=== PATIENT | female | born 1995 | race Caucasian/White ===

== ENCOUNTER 2021-03-18 11:14 | Emergency (ER) | payer BC ==
--- NOTE | 2021-03-18 11:49 | ED Physician Documentation ---
PD HPI DYSPNEA - Stated complaint Stated Complaint: SOA/CHEST TIGHTNESS - Chief complaint Chief Complaint: Cardiac - History obtained from History obtained from: Patient - History of Present Illness Timing - onset: How many hours ago (1), Today Timing - onset during: Light activity (was sitting at her desk doing computer work.) Timing - duration: Minutes Timing - details: Abrupt onset, Now resolved Inciting event(s): No: URI, Exposure (ie smoke), Immobilization/travel Improved by: Other (it resolved in few minutes without particular action/treatment.) Associated symptoms: No: Fever, Cough, Bilateral edema Similar symptoms before: Has not had sx before Recently seen: Not recently seen Review of Systems Constitutional: denies: Fever, Chills, Myalgias Nose: denies: Rhinorrhea / runny nose, Congestion Throat: denies: Sore throat Respiratory: denies: Dyspnea, Cough, Wheezing GI: denies: Abdominal Pain, Nausea, Vomiting Skin: denies: Rash, Lesions Neurologic: denies: Generalized weakness, Near syncope, Altered mental status PD PAST MEDICAL HISTORY - Past Medical History Past Medical History: No - Present Medications Home Medications: Ambulatory Orders Medication Instructions Recorded Confirmed Etonogestrel [Nexplanon] 68 mg SQ DAILY 03/18/21 03/18/21 - Allergies Allergies/Adverse Reactions: Allergies Allergy/AdvReac Type Severity Reaction Status Date / Time No Known Drug Allergies Allergy Verified 03/18/21 11:29 - Living Situation Living Arrangement: reports: At home - Social History Does the pt smoke?: No Does the pt drink ETOH?: No Does the pt have substance abuse?: No - Family History Family history: reports: CAD PD ED PE NORMAL - Vitals Vital signs reviewed: Yes - General General: Alert and oriented X 3, No acute distress, Well developed/nourished - HEENT HEENT: Pharynx benign - Neck Neck: Supple, no meningeal sign, No adenopathy - Cardiac Cardiac: RRR, No murmur - Respiratory Respiratory: Clear bilaterally, Other (no chestwall tenderness) - Abdomen Abdomen: Soft, Non tender, Other (obese) - Derm Derm: Normal color, Warm and dry - Extremities Extremities: No tenderness to palpate, Normal ROM s pain, No edema, No calf tenderness / cord - Neuro Neuro: Alert and oriented X 3, No motor deficit, Normal speech Results - Vitals Vitals: Oxygen O2 Source Room air - EKG (time done) 11:21 Rate: Rate (enter#) (96) Rhythm: NSR Downing: Normal Intervals: Normal NC QRS: Normal Ischemia: Normal ST segments, T wave inversion (III only). No: ST elevation c/w ischemia, ST depression - Labs Labs: Laboratory Tests 03/18/21 03/18/21 03/18/21 13:14 13:14 13:14 WBC 13.0 H RBC 4.70 Hgb 12.6 Hct 40.2 MCV 85.5 MCH 26.8 L MCHC 31.3 L RDW 13.6 Plt Count 235 MPV 12.8 H Neut # (Auto) 10.4 H Lymph # (Auto) 1.8 [place] # (Auto) 0.7 Eos # (Auto) 0.0 Baso # (Auto) 0.0 Absolute Nucleated RBC 0.00 Nucleated RBC % 0.0 Sodium 137 Potassium 4.2 Chloride 102 Carbon Dioxide 23 Anion Gap 12.0 BUN 12 Creatinine 0.6 Estimated GFR (MDRD) 120 Glucose 107 H Calcium 9.5 Total Bilirubin 0.3 AST 27 ALT 27 Alkaline Phosphatase 70 Troponin I High Sens 2.9 B-Natriuretic Peptide Total Protein 7.8 Albumin 4.2 Globulin 3.6 Albumin/Globulin Ratio 1.2 Lipase 27 03/18/21 13:14 WBC RBC Hgb Hct MCV MCH MCHC RDW Plt Count MPV Neut # (Auto) Lymph # (Auto) [place] # (Auto) Eos # (Auto) Baso # (Auto) Absolute Nucleated RBC Nucleated RBC % Sodium Potassium Chloride Carbon Dioxide Anion Gap BUN Creatinine Estimated GFR (MDRD) Glucose Calcium Total Bilirubin AST ALT Alkaline Phosphatase Troponin I High Sens B-Natriuretic Peptide 83 Total Protein Albumin Globulin Albumin/Globulin Ratio Lipase - Rads (name of study) chest xray Radiology: Prelim report reviewed (no acute infiltrate), See rad report PD MEDICAL DECISION MAKING - ED course Complexity details: reviewed results, considered differential, d/w patient Departure - Departure Disposition: 01 Home, Self Care Clinical Impression: Chest discomfort Condition: Stable Record reviewed to determine appropriate education?: Yes Instructions: ED Chest Pain Atypical Unkn Cause Follow-Up: [facility] [Provider Group] [facility] [Provider Group] Comments: No signs of a significant cause for your chest discomfort today. See if there is any recurrent episodes in the near future. See if any other symptoms develop such as cough, fevers, shortness of breath, recurrent pains etc. Follow-up with a primary care or the walk-in if recurrent mild episodes over the next days or week. Return to the ER if worsening symptoms overall. Discharge Date/Time: 03/18/21 14:48
--- NOTE | 2021-03-18 12:04 | XRAY Report ---
PROCEDURE: Chest 1 View X-Ray INDICATIONS: Chest pain TECHNIQUE: One view of the chest was acquired. COMPARISON: None FINDINGS: Surgical changes and devices: None. Lungs and pleura: No pleural effusions or pneumothorax. Lungs are clear. Mediastinum: Mediastinal contours appear normal. Heart size is normal. Bones and chest wall: No suspicious bony lesions. Overlying soft tissues appear unremarkable. IMPRESSION: No acute cardiopulmonary disease process. Reviewed by: Delfina Malone MD, PhD on 03/18/2021 12:03 PM PDT Approved by: Delfina Malone MD, PhD on 03/18/2021 12:03 PM PDT Station ID: [id number]
[2021-03-18 13:24] LABS: BASOPHILS % (AUTO) 0.2 %; EOSINOPHILS % (AUTO) 0.2 %; HCT - HEMATOCRIT 40.2 % (37.0-47.0); HGB - HEMOGLOBIN 12.6 g/dL (12.0-16.0); LYMPHOCYTES # (AUTO) 1.8 10^3/uL (1.5-3.5); LYMPHOCYTES % (AUTO) 13.9 %; MEAN CORPUSCULAR HEMOGLOBIN 26.8 pg (27.0-31.0); MEAN CORPUSCULAR HGB CONC 31.3 g/dL (32.0-36.0); MEAN CORPUSCULAR VOLUME 85.5 fL (81.0-99.0); MEAN PLATELET VOLUME 12.8 fL (7.9-10.8); MONOCYTES # (AUTO) 0.7 10^3/uL (0.0-1.0); MONOCYTES % (AUTO) 5.5 %; NEUTROPHILS # (AUTO) 10.4 10^3/uL (1.5-6.6); NEUTROPHILS % (AUTO) 79.9 %; PLT - PLATELET COUNT 235 10^3/uL (130-450); RED CELL DISTRIBUTION WIDTH 13.6 % (12.0-15.0)
[2021-03-18 13:38] LABS: ALBUMIN 4.2 g/dL (3.2-5.5); ALBUMIN/GLOBULIN RATIO 1.2 (1.0-2.2); BILIRUBIN,TOTAL 0.3 mg/dL (0.2-1.0); CALCIUM 9.5 mg/dL (8.5-10.3); CREATININE 0.6 mg/dL (0.4-1.0); POTASSIUM 4.2 mmol/L (3.5-5.0); TOTAL PROTEIN 7.8 g/dL (6.7-8.2)
[2021-03-18 14:48] VITALS: BP 140/65
== END 2021-03-18 14:48 | disposition home or self-care (01) ==
LOC: ED 11:14
DX: R07.9 Chest pain, unspecified (principal)
CPT/HCPCS: 36415; 80053; 83690; 83880; 84484; 85025; 93005; 99284

== ENCOUNTER 2021-06-25 08:43 | Outpatient (CLI) | payer BC ==
--- NOTE | 2021-07-04 02:22 | XRAY Report ---
PROCEDURE: Foot 3 View RT INDICATIONS: SPRAIN OF R FOOT TECHNIQUE: 3 views of the foot were acquired. Images became available for review on 07/03/2021. COMPARISON: None FINDINGS: Bones: No fractures or dislocations. No suspicious bony lesions. Calcaneal spur is noted. Soft tissues: No tibiotalar joint effusion. Achilles tendon appears normal. IMPRESSION: No visualized acute fracture or dislocation. However, occult injury cannot be excluded. Recommend christina rt interval imaging follow-up in 7-10 days as clinically indicated for additional evaluation. Reviewed by: Lyla Matthews MD on 07/04/2021 1:50 AM PDT Approved by: Lyla Matthews MD on 07/04/2021 1:50 AM PDT Station ID: [id number]
== END 2021-06-25 23:59 | disposition home or self-care (01) ==
LOC: DI.N 08:43
PROVIDERS: ATTEND Physician Assistant Medical
DX: S93.601A Unspecified sprain of right foot, initial encounter (principal)

== ENCOUNTER 2021-11-13 15:53 | Emergency (ER) | payer BC ==
[2021-11-13 16:47] LABS: BASOPHILS % (AUTO) 0.3 %; EOSINOPHILS # (AUTO) 0.1 10^3/uL (0.0-0.7); EOSINOPHILS % (AUTO) 0.5 %; HCT - HEMATOCRIT 39.7 % (37.0-47.0); HGB - HEMOGLOBIN 12.9 g/dL (12.0-16.0); LYMPHOCYTES # (AUTO) 1.9 10^3/uL (1.5-3.5); LYMPHOCYTES % (AUTO) 16.3 %; MEAN CORPUSCULAR HEMOGLOBIN 28.3 pg (27.0-31.0); MEAN CORPUSCULAR HGB CONC 32.5 g/dL (32.0-36.0); MEAN CORPUSCULAR VOLUME 87.1 fL (81.0-99.0); MEAN PLATELET VOLUME 13.5 fL (7.9-10.8); MONOCYTES # (AUTO) 0.7 10^3/uL (0.0-1.0); MONOCYTES % (AUTO) 5.6 %; NEUTROPHILS # (AUTO) 9.1 10^3/uL (1.5-6.6); PLT - PLATELET COUNT 232 10^3/uL (130-450); RED BLOOD COUNT 4.56 10^6/uL (4.20-5.40); RED CELL DISTRIBUTION WIDTH 13.6 % (12.0-15.0); WHITE BLOOD COUNT 11.9 x10^3/uL (4.8-10.8)
--- NOTE | 2021-11-13 16:49 | ED Physician Documentation ---
PD HPI ABD PAIN - Stated complaint Stated Complaint: ABD PX - Chief complaint Chief Complaint: Abd Pain - History obtained from History obtained from: Patient - Additional information Additional information: 26yo female with hx depression, insulin resistance on ozempic, vit D defy. No PSHX Bilateral upper abd pain starting today about 2 hrs ago, sudden in onset. Sharp/Crampy 8-9/10, waxes and wanes +N, -V Review of Systems Ten Systems: 10 systems reviewed and negative Constitutional: reports: Sweats. denies: Fever, Chills Cardiac: denies: Palpitations Respiratory: denies: Dyspnea, Cough GI: reports: Abdominal Pain, Nausea. denies: Vomiting : denies: Dysuria, Hesitancy PD PAST MEDICAL HISTORY - Present Medications Home Medications: Ambulatory Orders Medication Instructions Recorded Confirmed Etonogestrel [Nexplanon] 68 mg SQ DAILY 03/18/21 03/18/21 HYDROcod/ACETAM 5/325 [[place] 5/325] 1 - 2 tab PO Q6H PRN #15 tablet 11/13/21 - Allergies Allergies/Adverse Reactions: Allergies Allergy/AdvReac Type Severity Reaction Status Date / Time metronidazole Allergy Nausea Verified 11/13/21 16:04 - Social History Does the pt smoke?: No Smoking Status: Never smoker Does the pt drink ETOH?: No Does the pt have substance abuse?: No PD ED PE NORMAL - Vitals Vital signs reviewed: Yes - General General: Alert and oriented X 3, No acute distress - HEENT HEENT: PERRL, EOMI - Neck Neck: Supple, no meningeal sign, No bony TTP - Cardiac Cardiac: RRR, No murmur - Respiratory Respiratory: No respiratory distress, Clear bilaterally - Abdomen Abdomen: Normal bowel sounds, Soft, Other (Bilateral upper abd TTP) - Back Back: No CVA TTP, No spinal TTP - Derm Derm: Normal color, Warm and dry - Extremities Extremities: No edema, No calf tenderness / cord - Neuro Neuro: Alert and oriented X 3, Normal speech Results - Vitals Vitals: Vital Signs - 24 hr 11/13/21 11/13/21 15:59 18:03 Temperature 36.4 C L Heart Rate 78 69 Respiratory 18 18 Rate Blood Pressure 128/64 140/79 H O2 Saturation 100 100 Oxygen O2 Source Room air - Labs Labs: Laboratory Tests 11/13/21 11/13/2111/13/22 16:40 16:40 17:28 WBC 11.9 H RBC 4.56 Hgb 12.9 Hct 39.7 MCV 87.1 MCH 28.3 MCHC 32.5 RDW 13.6 Plt Count 232 MPV 13.5 H Neut # (Auto) 9.1 H Lymph # (Auto) 1.9 [place] # (Auto) 0.7 Eos # (Auto) 0.1 Baso # (Auto) 0.0 Absolute Nucleated RBC 0.00 Nucleated RBC % 0.0 Sodium 136 Potassium 3.8 Chloride 102 Carbon Dioxide 24 Anion Gap 10.0 BUN 11 Creatinine 0.6 Estimated GFR (MDRD) 119 Glucose 110 H Calcium 9.1 Total Bilirubin 0.5 AST 40 ALT 23 Alkaline Phosphatase 71 Total Protein 7.4 Albumin 3.9 Globulin 3.5 Albumin/Globulin Ratio 1.1 Lipase 296 H Urine Color YELLOW Urine Clarity HAZY Urine pH 7.0 Ur Specific [place] 1.020 Urine Protein NEGATIVE Urine Glucose (UA) NEGATIVE Urine Ketones TRACE Urine Occult Blood NEGATIVE Urine Nitrite NEGATIVE Urine Bilirubin NEGATIVE Urine Urobilinogen 1 (NORMAL) Ur Leukocyte Esterase NEGATIVE Urine RBC 0-5 Urine WBC 0-3 Ur Squamous Epith Cells MOD Squamous H Urine Bacteria Few Urine Mucus Moderate Strands Ur Microscopic Review INDICATED Urine Culture Comments NOT INDICATED Urine HCG, Qual NEGATIVE PD MEDICAL DECISION MAKING - ED course ED course: 26-year-old woman has a episodic upper abdominal pain most consistent with biliary colic. Ultrasound showing cholelithiasis and sludge. No evidence of cholecystitis. She was pain-free after arrival and declined pain medication. She does have mild biochemical pancreatitis. Of note she has been on Ozempic for about 2 months which has listed side effects of pancreatitis, abdominal pain, cholelithiasis, and cholecystitis and advised to discontinue that pending further work-up. Discussed need for surgical follow-up. We discussed clear liquid diet for today and then gallbladder diet going forward. Departure - Departure Disposition: 01 Home, Self Care Clinical Impression: Abdominal pain Qualifiers: Abdominal location: epigastric Qualified Code(s): R10.13 - Epigastric pain Pancreatitis Qualifiers: Chronicity: acute Pancreatitis type: unspecified pancreatitis type Acute pancreatitis complication: unspecified Qualified Code(s): K85.90 - Acute pancreatitis without necrosis or infection, unspecified Condition: Good Record reviewed to determine appropriate education?: Yes Instructions: ED Pancreatitis Prescriptions: HYDROcod/ACETAM 5/325 [[place] 5/325] 1 - 2 tab PO Q6H PRN #15 tablet PRN Reason: Pain Comments: As discussed, you were found today to have potentially some gallbladder sludge and mild pancreatitis. Given the recent starting of Ozempic we wonder if some of your symptoms may be related this and I recommend stopping this until this is all straightened out. I would follow-up with Dr. Hanks for consideration of EGD versus HIDA scanning. And also touch base with your primary care physician who prescribes the Ozempic to let her know the current thought process. Return for new or worsening symptoms. Clear liquid diet tonight and subsequently low f at/low protein diet until work-up is complete. I sent your prescription electronically to the [facility] pharmacy at the corner of and [facility] here in [place]. I am prescribing a short course of narcotic pain medication for you. These are potentially dangerous and addictive medications that should be used carefully. These medications may constipate you. Take an fgzx-uct-ecnhipi stool softener (docusate) twice daily with plenty of water while taking these medications. If you go 24 hours without a bowel movement, take [id number]-obo-[id number] miralax, per package instructions. Do not drink or drive while taking these medications. If you received narcotic or sedating medications while in the emergency department, do not drive for 24 hours. Store this medication in a safe, secure place and out of reach of children. It is a violation of federal law to give or sell this medication to another person or to use in a manner other than prescribed. The ED will not refill narcotic prescriptions, including prescriptions lost or stolen. To dispose of unwanted medications: 1. [facility] at [address] [facility] in [place] has a medication drop box. They accept prescription medications (in pill form) Thursday through Thursday 9:00 a.m. to 5:00 p.m. 2. The [facility] [employer] Department accepts prescription medications (in pill form only) for disposal year round. Call for more information. 3. Contact the [facility] for the next [facility] sponsored prescription drug collection event. , [phone], or [phone]; Note that many narcotic pain relievers also contain Tylenol/acetaminophen. Please ensure that your total dose of acetaminophen from all sources does not exceed 3 g (3000 mg) per day. Discharge Date/Time: 11/13/21 18:41
[2021-11-13 17:05] LABS: ALBUMIN 3.9 g/dL (3.2-5.5); ALBUMIN/GLOBULIN RATIO 1.1 (1.0-2.2); BILIRUBIN,TOTAL 0.5 mg/dL (0.2-1.0); CALCIUM 9.1 mg/dL (8.5-10.3); CREATININE 0.6 mg/dL (0.4-1.0); POTASSIUM 3.8 mmol/L (3.5-5.0); TOTAL PROTEIN 7.4 g/dL (6.7-8.2)
[2021-11-13 17:37] LABS: BILIRUBIN,URINE NEGATIVE (NEGATIVE); GLUCOSE, URINE (UA) NEGATIVE (NEGATIVE); KETONES,URINE (UA) TRACE mg/dL (NEGATIVE); LEUKOCYTE ESTERASE, URINE NEGATIVE (NEGATIVE); NITRITE,URINE NEGATIVE (NEGATIVE); OCCULT BLOOD,URINE NEGATIVE (NEGATIVE); PROTEIN,URINE NEGATIVE (NEGATIVE); UROBILINOGEN,URINE 1 (NORMAL) E.U./dL (NORMAL)
[2021-11-13 17:39] LABS: CLARITY,URINE HAZY (CLEAR); HCG UR QUAL NEGATIVE
[2021-11-13 17:44] LABS: BACTERIA,URINE Few /HPF (None Seen); RBC,URINE 0-5 /HPF (0-5); SQUAMOUS EPITHELIAL CELL,UR MOD Squamous (<= Few); WBC,URINE 0-3 /HPF (0-5)
[2021-11-13 17:45] LABS: MUCUS,URINE Moderate Strands
[2021-11-13 18:05] VITALS: BP 140/79
--- NOTE | 2021-11-13 18:43 | Ultrasound Report ---
PROCEDURE: Abdomen Limited INDICATIONS: upper abd pain TECHNIQUE: Real-time focused scanning was performed of the abdomen, with image documentation. COMPARISON: None. FINDINGS: AORTA: The visualized abdominal aorta is normal. IVC: The visualized IVC is normal. LIVER: The liver is normal in size and contour. No significant abnormality. PANCREAS: The visualized portions of the pancreas are normal. Gallbladder and biliary tree: No gallbladder wall thickening or pericholecystic fluid. Layering gal lstones/sludge. The common bile that measures 3.5 mm RIGHT KIDNEY: Normal in appearance with no hydronephrosis. Measuring 12 cm in length. The renal cor jona thickness measures 1.6 cm. No ascites. IMPRESSION: 1.Cholelithiasis/sludge. Reviewed by: Jai Figueredo MD on 11/13/2021 6:42 PM PDT Approved by: Jai Figueredo MD on 11/13/2021 6:42 PM PDT Station ID: [id number]
== END 2021-11-13 18:41 | disposition home or self-care (01) ==
LOC: ED 15:53
DX: K85.90 Acute pancreatitis without necrosis or infection, unspecified (principal)
CPT/HCPCS: 36415; 80053; 81001; 81003; 81025; 83690; 85025; 87086; 99284

== ENCOUNTER 2022-06-06 21:29 | Emergency (ER) | payer BC, OTHER ==
[2022-06-06] MEDS ORDERED: oxyCODONE/ACET 5/325 Prepack 4 PO STA (21:41)
[2022-06-06] MEDS ORDERED: BUPIVACAINE 0.25% PF 30 ML VIAL SUBQ STA (21:41)
--- NOTE | 2022-06-06 21:43 | ED Physician Documentation ---
History of Present Illness - Stated complaint Stated Complaint: TOOTH INFECTION - History obtained from History obtained from: Patient - Additonal information Additional information: She is had pain from a maxillary last molar for the last couple of days. She went to see the dentist and they did a drilling into it, the capsule would not rub but it still quite painful despite been giving her [place] and clindamycin. She has a sensation of facial swelling. No fevers. Review of Systems Constitutional: denies: Fever, Chills Ears: reports: Reviewed and negative Nose: reports: Rhinorrhea / runny nose Throat: reports: Dental pain / toothache PD PAST MEDICAL HISTORY - Present Medications Home Medications: Ambulatory Orders Medication Instructions Recorded Confirmed Etonogestrel [Nexplanon] 68 mg SQ DAILY 03/18/21 06/06/22 HYDROcod/ACETAM 5/325 [[place] 5/325] 1 - 2 tab PO Q6H PRN #15 tablet 11/13/21 06/06/22 Ergocalciferol [Vitamin D2] 50 units PO 06/06/22 Oxycodone HCl/Acetaminophen 1 - 2 each PO Q6H PRN #20 tablet 06/06/22 [Percocet 5-325 mg Tablet] Semaglutide [Ozempic] 06/06/22 clindamycin HCL [Clindamycin HCl] 300 mg PO QID 06/06/22 06/06/22 - Allergies Allergies/Adverse Reactions: Allergies Allergy/AdvReac Type Severity Reaction Status Date / Time adhesive Allergy Rash Verified 06/06/22 21:51 latex Allergy Rash Verified 06/06/22 21:51 metronidazole Allergy Nausea Verified 06/06/22 21:51 - Social History Does the pt smoke?: No Smoking Status: Never smoker Does the pt drink ETOH?: No Does the pt have substance abuse?: No PD ED PE NORMAL - Vitals Vital signs reviewed: Yes - General General: Alert and oriented X 3, No acute distress - HEENT HEENT: Other (The last maxillary molar on the left is quite tender. She has no trismus. No sublingual edema. No swelling. No buccal or gingival edema. TMs are normal.) - Neck Neck: Supple, no meningeal sign, No bony TTP - Neuro Neuro: Alert and oriented X 3, Normal speech Results - Vitals Vitals: Vital Signs - 24 hr 10/07/22 21:40 Temperature 36.3 C L Heart Rate 70 Respiratory 14 Rate Blood Pressure 139/93 H O2 Saturation 100 Oxygen O2 Source Room air Procedures - General procedure General procedure: Buccal block done with 0.5% bupivacaine L maxilla with excellent anesthesia Departure - Departure Disposition: 01 Home, Self Care Clinical Impression: Dental abscess Condition: Good Instructions: ED Abscess Dental Follow-Up: [facility] [Physician No Access] - Prescriptions: Oxycodone HCl/Acetaminophen [Percocet 5-325 mg Tablet] 1 - 2 each PO Q6H PRN #20 tablet PRN Reason: pain Comments: Continue clindamycin. I sent a prescription for Percocet to the [facility] pharmacy I am prescribing a short course of narcotic pain medication for you. These are potentially dangerous and addictive medications that should be used carefully. These medications may constipate you. Take an kxzz-mce-ycrieca stool softener (docusate) twice daily with plenty of water while taking these medications. If you go 24 hours without a bowel movement, take fnjp-lep-hrabefq miralax, per package instructions. Do not drink or drive while taking these medications. If you received narcotic or sedating medications while in the emergency department, do not drive for 24 hours. Store this medication in a safe, secure place and out of reach of children. It is a violation of federal law to give or sell this medication to another person or to use in a manner other than prescribed. The ED will not refill narcotic prescriptions, including prescriptions lost or stolen. To dispose of unwanted medications: 1. [facility] at [address] in [place] has a medication drop box. They accept prescription medications (in pill form) Thursday through Thursday 9:00 a.m. to 5:00 p.m. 2. The [facility] Department accepts prescription medications (in pill form only) for disposal year round. Call for more information. 3. Contact the [facility] for the next [facility] sponsored prescription drug collection event. , [phone], or [phone]; Note that many narcotic pain relievers also contain Tylenol/acetaminophen. Please ensure that your total dose of acetaminophen from all sources does not exceed 3 g (3000 mg) per day.
[2022-06-06] MEDS ORDERED: BUPIVACAINE 0.5% PF 10 ML VIAL SUBQ STA (21:46)
[2022-06-06 21:51] VITALS: BP 139/93
[2022-06-06] MEDS ORDERED: BUPIVACAINE 0.5% PF 30 ML VIAL ONE (22:03)
== END 2022-06-06 22:20 | disposition home or self-care (01) ==
LOC: ED 21:29
DX: K04.7 Periapical abscess without sinus (principal)
CPT/HCPCS: 64400; 99283

== ENCOUNTER 2022-09-25 15:43 | Outpatient (CLI) | payer OTHER ==
[2022-09-25 21:03] LABS: ESTIMATED AVERAGE GLUCOSE 97 mg/dL (70-100)
== END 2022-09-25 15:44 | disposition home or self-care (01) ==
LOC: LAB 15:43
PROVIDERS: ATTEND Obstetrics & Gynecology
DX: E66.01 Morbid (severe) obesity due to excess calories (principal)
CPT/HCPCS: 36415; 83036

== ENCOUNTER 2022-12-17 18:04 | Emergency (ER) | payer OTHER ==
[2022-12-17 18:39] LABS: BASOPHILS % (AUTO) 0.2 %; EOSINOPHILS # (AUTO) 0.1 10^3/uL (0.0-0.7); EOSINOPHILS % (AUTO) 0.6 %; HCT - HEMATOCRIT 39.2 % (37.0-47.0); HGB - HEMOGLOBIN 12.2 g/dL (12.0-16.0); LYMPHOCYTES # (AUTO) 3.5 10^3/uL (1.5-3.5); LYMPHOCYTES % (AUTO) 33.4 %; MEAN CORPUSCULAR HEMOGLOBIN 27.5 pg (27.0-31.0); MEAN CORPUSCULAR HGB CONC 31.1 g/dL (32.0-36.0); MEAN CORPUSCULAR VOLUME 88.5 fL (81.0-99.0); MEAN PLATELET VOLUME 12.7 fL (7.9-10.8); MONOCYTES # (AUTO) 0.8 10^3/uL (0.0-1.0); MONOCYTES % (AUTO) 7.6 %; NEUTROPHILS % (AUTO) 57.9 %; PLT - PLATELET COUNT 233 10^3/uL (130-450); RED BLOOD COUNT 4.43 10^6/uL (4.20-5.40); RED CELL DISTRIBUTION WIDTH 12.9 % (12.0-15.0); WHITE BLOOD COUNT 10.4 x10^3/uL (4.8-10.8)
--- NOTE | 2022-12-17 18:48 | ED Physician Documentation ---
History of Present Illness - Stated complaint Stated Complaint: HEART PALPS - Chief complaint Chief Complaint: Cardiac - Additonal information Additional information: 27-year-old female presents emergency department for evaluation of palpitations. Reports that she was riding the [email or web address] this afternoon and on the passenger deck when she began to feel a fluttering and flip-flopping of her heart. The symptoms lasted for about 45 minutes. She states she had a similar occurrence last week. She denies chest pain or shortness of air. But given the sensation she decided to present to the ER. By the time she arrived here she states palpitations are gone away. She does have a history of hyperinsulinemia. She was previously on Ozempic. No fevers. No cough no congestion. Does have a history of anxiety and depression but states this feels different Review of Systems Constitutional: reports: Reviewed and negative Cardiac: reports: Palpitations. denies: Chest pain / pressure Respiratory: reports: Reviewed and negative GI: reports: Reviewed and negative : reports: Reviewed and negative PD PAST MEDICAL HISTORY - Past Medical History Endocrine/Autoimmune: Other GI: Pancreatitis - Past Surgical History Past Surgical History: Yes General: Cholecystectomy - Present Medications Home Medications: Ambulatory Orders Medication Instructions Recorded Confirmed Etonogestrel [Nexplanon] 68 mg SQ DAILY 03/18/21 06/06/22 Ergocalciferol [Vitamin D2] 50 units PO DAILY 06/06/22 Buspirone HCl 10 mg PO DAILY 12/17/22 Escitalopram Oxalate [Lexapro] 20 mg PO DAILY 12/17/22 - Allergies Allergies/Adverse Reactions: Allergies Allergy/AdvReac Type Severity Reaction Status Date / Time adhesive Allergy Rash Verified 12/17/22 18:26 latex Allergy Rash Verified 12/17/22 18:26 metronidazole Allergy Nausea Verified 12/17/22 18:26 - Social History Does the pt smoke?: No Smoking Status: Never smoker Does the pt drink ETOH?: No Does the pt have substance abuse?: No - Immunizations Immunizations are current?: Yes - POLST Patient has POLST: No PD ED PE NORMAL - General General: Alert and oriented X 3, No acute distress. No: Well developed/nourished (obese) - HEENT HEENT: Atraumatic, Moist mucous membranes - Neck Neck: Supple, no meningeal sign, No adenopathy - Cardiac Cardiac: RRR, No murmur, Strong equal pulses - Respiratory Respiratory: No respiratory distress, Clear bilaterally - Abdomen Abdomen: Non tender - Back Back: No CVA TTP - Derm Derm: Normal color, Warm and dry, No rash Results - Vitals Vitals: Vital Signs - 24 hr 12/17/22 12/17/22 12/17/22 18:12 18:28 18:52 Temperature 36.6 C Heart Rate 70 66 Respiratory 17 17 18 Rate Blood Pressure 146/93 H 127/84 H O2 Saturation 100 100 Oxygen O2 Source Room air - EKG (time done) 1819 EKG releavant findings:: EKG personally interpreted by author of this note. Relevant findings are: Rate: Rate (enter#) Rhythm: NSR [place]: Normal Intervals: Prolonged ND QRS: Low voltage Ischemia: Non specific changes Compare to prior EKG: Old EKG unavailable Computer interpretation: Agree with computer - Labs Labs: Laboratory Tests 12/17/22 12/17/22 12/17/22 18:33 18:33 18:33 WBC 10.4 RBC 4.43 Hgb 12.2 Hct 39.2 MCV 88.5 MCH 27.5 MCHC 31.1 L RDW 12.9 Plt Count 233 MPV 12.7 H Neut # (Auto) 6.0 Lymph # (Auto) 3.5 [place] # (Auto) 0.8 Eos # (Auto) 0.1 Baso # (Auto) 0.0 Absolute Nucleated RBC 0.00 Nucleated RBC % 0.0 Sodium 135 Potassium 3.7 Chloride 100 L Carbon Dioxide 25 Anion Gap 10.0 BUN 10 Creatinine 0.6 Estimated GFR (MDRD) 118 Glucose 99 Calcium 8.8 Magnesium Total Bilirubin 0.4 AST 24 ALT 17 Alkaline Phosphatase 62 Total Protein 7.2 Albumin 4.1 Globulin 3.1 Albumin/Globulin Ratio 1.3 Lipase 45 HCG, Quant < 0.60 12/17/22 18:33 WBC RBC Hgb Hct MCV MCH MCHC RDW Plt Count MPV Neut # (Auto) Lymph # (Auto) [place] # (Auto) Eos # (Auto) Baso # (Auto) Absolute Nucleated RBC Nucleated RBC % Sodium Potassium Chloride Carbon Dioxide Anion Gap BUN Creatinine Estimated GFR (MDRD) Glucose Calcium Magnesium 1.8 Total Bilirubin AST ALT Alkaline Phosphatase Total Protein Albumin Globulin Albumin/Globulin Ratio Lipase HCG, Quant - Rads (name of study) cxr Relevant Findings:: Final report received, EMP independent interpretation of test (no acute cardiopulmonary process) PD Medical Decision Making - ED course Complexity details: reviewed results, considered differential, d/w patient ED course: Very pleasant well-appearing 27-year-old female presents emergency department for evaluation of palpitations. She was riding the [employer] when she began to have a sensation of her heart flip-flopping. The episode lasted about 45 minutes [place] She had a similar episode last week. By the time she presented to the ER much of the palpitations had subsided. She denies chest pain or shortness of air. Here in the emergency department her EKG was obtained. Per my interpretation no acute ischemic findings. She is noted to have mildly prolonged ND interval/first-degree AV block. I did obtain a CBC, electrolytes that were all essentially benign. While here on the monitor we have noted that she has infrequent unifocal PVCs. Patient is aware when these occur. Chest x-ray is interpreted by the radiologist and myself showed no acute cardiopulmonary findings. I discussed with the patient the findings of PVCs while on monitor though not obtained during her twelve-lead. Given that these are typically benign and there is no acute electrolyte findings that would likely be causative of this she is stable for discharge home I am encouraging her to follow closely with her PCP. She may benefit from a Holter monitor for longer-term evaluation and monitoring. Otherwise the usual emergent return precautions were discussed for worsening symptoms. Departure - Departure Disposition: 01 Home, Self Care Clinical Impression: Palpitations, PVCs (premature ventricular contractions) Condition: Stable Record reviewed to determine appropriate education?: Yes Instructions: ED Palpitations, Premature Ventricular Contract About Comments: You came in the emergency department today because you [place]. You also had similar symptoms last week. Your EKG today was essentially normal though did show you have a first-degree heart block. This is a benign condition is not associated with your symptoms. However while you have been on the monitor here in the ER we have noticed that you have PVCs. These are premature ventricular contractions and I suspect what are the cause of your palpitations. PVCs are in general benign. They are rarely treated unless somebody has 2 high burden of PVCs that begins to interact with their blood pressure or ability to stay awake. I encourage you to discuss this ED visit with your primary care provider. They may elect to place a Holter monitor on you. This will help determine how frequently you are having the PVCs and if further treatment would be necessary. Return to the ER for worsening symptoms or any fainting episodes
[2022-12-17 18:53] LABS: ALBUMIN 4.1 g/dL (3.2-5.5); ALBUMIN/GLOBULIN RATIO 1.3 (1.0-2.2); BILIRUBIN,TOTAL 0.4 mg/dL (0.2-1.0); CALCIUM 8.8 mg/dL (8.5-10.3); CREATININE 0.6 mg/dL (0.4-1.0); POTASSIUM 3.7 mmol/L (3.5-5.0); TOTAL PROTEIN 7.2 g/dL (6.7-8.2)
--- NOTE | 2022-12-17 19:15 | XRAY Report ---
PROCEDURE: Chest 1 View X-Ray INDICATIONS: Chest Pain TECHNIQUE: One view of the chest was acquired. COMPARISON: CXR 03/18/2021. FINDINGS: Surgical changes and devices: None. Lungs and pleura: No pleural effusions or pneumothorax. Lungs are clear. Mediastinum: Mediastinal contours appear normal. Heart size is felt to be within normal limits and unchanged. Bones and chest wall: No suspicious bony lesions. Overlying soft tissues appear unremarkable. IMPRESSION: No acute cardiopulmonary abnormality. Reviewed by: Ray Posadas MD on 12/17/2022 7:14 PM PDT Approved by: Ray Posadas MD on 12/17/2022 7:14 PM PDT Station ID: [id number]
[2022-12-17 19:34] VITALS: BP 119/69
== END 2022-12-17 19:34 | disposition home or self-care (01) ==
LOC: ED 18:04
DX: R00.2 Palpitations (principal); I49.3 Ventricular premature depolarization
CPT/HCPCS: 36415; 80053; 83690; 83735; 84702; 85025; 93005; 99283; 99284

== ENCOUNTER 2024-01-27 18:02 | Emergency (ER) | payer OTHER ==
[2024-01-27 18:13] VITALS: O2SAT 98
--- NOTE | 2024-01-27 18:46 | XRAY Report ---
PROCEDURE: Ankle 3+V LT INDICATIONS: Trauma TECHNIQUE: 3 views of the ankle were acquired. COMPARISON: None. FINDINGS: Bones: No fractures or dislocations. Ankle mortise is normally aligned. No suspicious bony lesions . Calcaneal spur. Soft tissues: No tibiotalar joint effusion. Achilles tendon appears normal. IMPRESSION: No visualized acute fracture or dislocation. However, occult injury cannot be excluded. Recommend christina rt interval imaging follow-up in 7-10 days as clinically indicated for additional evaluation. Reviewed by: Lyla Matthews MD on 01/27/2024 6:44 PM PDT Approved by: Lyla Matthews MD on 01/27/2024 6:44 PM PDT Station ID: [id number]
--- NOTE | 2024-01-27 18:53 | ED Physician Documentation ---
PD HPI LOWER EXT INJURY - Stated complaint Stated Complaint: LT FOOT INJ - Chief complaint Chief Complaint: Trauma Ext - History obtained from History obtained from: Patient - History of Present Illness PD HPI LOW EXT INJURY LOCATION: Left, Ankle, Foot Type of injury: Twist (inversion) Timing - onset: Today Timing - details: Abrupt onset, Still present Worsened by: Moving, Palpating Associated symptoms: Swelling. No: Weakness, Numbness PD PAST MEDICAL HISTORY - Past Medical History Past Medical History: Yes Endocrine/Autoimmune: Other GI: Pancreatitis - Past Surgical History Past Surgical History: Yes General: Cholecystectomy - Present Medications Home Medications: Ambulatory Orders Medication Instructions Recorded Confirmed Etonogestrel [Nexplanon] 68 mg SQ DAILY 03/18/21 06/06/22 Ergocalciferol [Vitamin D2] 50 units PO DAILY 06/06/22 Buspirone HCl 10 mg PO DAILY 12/17/22 Escitalopram Oxalate [Lexapro] 20 mg PO DAILY 12/17/22 - Allergies Allergies/Adverse Reactions: Allergies Allergy/AdvReac Type Severity Reaction Status Date / Time adhesive Allergy Rash Verified 01/27/24 18:06 latex Allergy Rash Verified 01/27/24 18:06 metronidazole Allergy Nausea Verified 01/27/24 18:06 - Social History Does the pt smoke?: No Smoking Status: Never smoker Does the pt drink ETOH?: No Does the pt have substance abuse?: No - Immunizations Immunizations are current?: Yes - POLST Patient has POLST: No PD ED PE NORMAL - Vitals Vital signs reviewed: Yes - General General: Alert and oriented X 3, No acute distress, Well developed/nourished - Derm Derm: Normal color, Warm and dry - Extremities Extremities: Other (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 No gross deformity. Normal color and cap refill distally. ) - Neuro Neuro: No motor deficit, No sensory deficit Results - Vitals Vitals: Vital Signs - 24 hr 01/27/24 01/27/24 18:06 19:11 Temperature 36.8 C Heart Rate 100 90 Respiratory 16 18 Rate Blood Pressure 116/79 110/79 O2 Saturation 98 98 Oxygen O2 Source Room air - Rads (name of study) xray ankle without fracture Relevant Findings:: Prelim report reviewed, EMP independent interpretation of test (no frcture) PD Medical Decision Making - ED course Complexity details: reviewed results (xray negative. Pt does not feel she needs crutches, would be more awkward. ), considered differential (inversion injury with pain movement and walking. Can xray toe jose for fracture. Hopefully sprain. ), d/w patient Departure - Departure Disposition: 01 Home, Self Care Clinical Impression: Ankle sprain Qualifiers: Encounter type: initial encounter Involved ligament of ankle: unspecified ligament Laterality: left Qualified Code(s): S93.402A - Sprain of unspecified ligament of left ankle, initial encounter Condition: Stable Record reviewed to determine appropriate education?: Yes Instructions: ED Sprain Ankle Follow-Up: Orthopedic Care [Provider Group] Comments: Your x-ray of the ankle and proximal foot do not show any fractures. Obviously still of injury there and presume stretching and injury of the ligaments and muscles (sprain/strain). This can be treated with a wrap to the area to help reduce swelling and also a brace to help keep the ligaments from being in stretched. Ice elevate and rest the ankle often tonight and tomorrow to help reduce swelling. Anti-inflammatory such as ibuprofen or naproxen 2 to 3 tablets 2-3 times daily with food for the next several days to week. Add Tylenol every 4-6 hours if needed for pain as well. Commonly this will have symptoms over several days to week or more but typically will resolve over a couple of weeks. Wear the brace when up and around until fully improved. Follow-up with your primary care or Ortho if not well improving over the next week and resolved in the appropriate timeframe. Forms: PCP List Discharge Date/Time: 01/27/24 19:12
[2024-01-27] MEDS: ACETAMINOPHEN 325 MG TABLET PO STA (18:55)
[2024-01-27 19:21] VITALS: BP 110/79
== END 2024-01-27 19:12 | disposition home or self-care (01) ==
LOC: ED 18:02
DX: S93.402A Sprain of unspecified ligament of left ankle, initial encounter (principal); X50.1XXA Overexertion from prolonged static or awkward postures, initial encounter
CPT/HCPCS: 73610; 99283; A9270